=== PATIENT | female | born 1970 | race Caucasian/White ===

== ENCOUNTER 2021-04-29 14:01 | Emergency (ER) | payer BC, OTHER ==
[2021-04-29] MEDS ORDERED: Lidocaine 1% 10 ML MDV INJECT ONE (14:17)
--- NOTE | 2021-04-29 14:53 | EDM.PDOC ---
ED HPI GENERAL MEDICAL PROBLEM - General Chief Complaint: Laceration Stated Complaint: R HAND LAC Time Seen by Provider: 04/29/21 14:04 Source of Information: Reports: Patient, RN Notes Reviewed History Limitations: Reports: No Limitations - History of Present Illness INITIAL COMMENTS - FREE TEXT/NARRATIVE: Pt is a 51 year old female presenting to the ER with c/o a laceration to the dorsal aspect of her right hand. 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 She is over due for tetanus but does not want one today. States "I'm healthy". Denies any numbess or tingling. She has full strength and ROM of her hand and fingers. - Related Data Allergies Allergy/AdvReac Type Severity Reaction Status Date / Time No Known Allergies Allergy Verified 04/29/21 14:19 Home Meds: Home Meds . [No Known Home Meds] 04/29/21 [History] Past Medical History - Past Health History Medical/Surgical History: Denies Medical/Surgical History Social & Family History - Tobacco Use Tobacco Use Status *Q: Never Tobacco User ED ROS GENERAL - Review of Systems Review Of Systems: Comprehensive ROS is negative, except as noted in HPI. ED EXAM, SKIN/RASH Exam: See Below General Appearance: Alert, WD/WN, No Apparent Distress Respiratory/Chest: No Respiratory Distress, Lungs Clear, Normal Breath Sounds, No Accessory Muscle Use, Chest Non-Tender Cardiovascular: Normal Peripheral Pulses, Regular Rate, Rhythm, No Edema, No Gallop, No JVD, No Murmur, No Rub Extremities: Other (5.5 cm u-shaper flap laceration to the dorsal aspect of the right and proximal to the 2nd and 3rd fingers. Small amount of active bleeding. Full strength to flexion and extension. Full ROM.) Neurological: Alert, Oriented, CN II-XII Intact, Normal Cognition, Normal Gait, Normal Reflexes, No Motor/Sensory Deficits Psychiatric: Normal Affect, Normal Mood ED SKIN PROCEDURES - Laceration/Wound Repair Right Dorsal Hand Appearance: Subcutaneous Distal NVT: Neuro & Vascular Intact, No Tendon Injury Anesthetic Type: Local Local Anesthesia - Lidocaine (Xylocaine): 1% Plain Local Anesthetic Volume: 3cc Skin Prep: Chlorhexidine (Hibiciens), Providone-Iodine (Betadine), Saline, Sterile Drape Exploration/Debridement/Repair: Wound Explored, In a Bloodless Field, No Foreign Material Found Closed with: Sutures Lac/Wound length In cm: 5.5 Suture Size: 4-0 # of Sutures: 10 Suture Type: Nylon Sterile Dressing Applied: Nurse Tetanus Status Addressed: Yes (pt refused tdap. educated on risks. She verbalized understanding.) Complications: No Course - Vital Signs Last Recorded V/S: Last Vital Signs Temp 98.2 F 04/29/21 14:20 Pulse 67 04/29/21 14:20 Resp 18 04/29/21 14:20 BP 141/77 H 04/29/21 14:20 Pulse Ox 97 04/29/21 14:20 - Orders/Labs/Meds Meds: Medications Discontinued Medications Generic Name Dose Route Start Last Admin Trade Name Melissa PRN Reason Stop Dose Admin Lidocaine HCl 10 ml 04/29/21 14:17 04/29/21 14:30 Lidocaine 1% 10 Ml Mdv INJECT 04/29/21 14:18 10 ml ONETIME ONE Administration Departure - Departure Time of Disposition: 14:52 Disposition: Home, Self-Care 01 Condition: Good Clinical Impression: Laceration - Discharge Information *PRESCRIPTION DRUG MONITORING PROGRAM REVIEWED*: No *COPY OF PRESCRIPTION DRUG MONITORING REPORT IN PATIENT MILY: No Instructions: Laceration Care, Adult Referrals: PCP,None [Primary Care Provider] - Additional Instructions: You were seen in the emergency department today for a laceration to your right hand. The wound was cleansed and closed with 10 sutures. These should stay intact for 7-10 days. After that time they may be removed in the clinic by a nurse. Keep the wound clean and dry. Wash with normal soap and water twice daily. Do not submerge the wound in water. Watch for signs of infection including increased redness, swelling, or purulent drainage. If these should occur, you should be seen either in the clinic or in the emergency department as antibiotic treatment may be needed. Return to the ER as needed. Sepsis Event Note (ED) - Evaluation Sepsis Screening Result: No Definite Risk - Focused Exam Vital Signs: Vital Signs Temp Pulse Resp BP Pulse Ox 04/29/21 14:20 98.2 F 67 18 141/77 H 97
== END 2021-04-29 15:04 | disposition home or self-care (01) ==
LOC: JD.ED 14:01
DX: S61.411A Laceration without foreign body of right hand, initial encounter (principal); W22.8XXA Striking against or struck by other objects, initial encounter; Y93.G9 Activity, other involving cooking and grilling; Y92.513 Shop (commercial) as the place of occurrence of the external cause
CPT/HCPCS: 12002; 99282; 99282-25